=== PATIENT | male | born 1940 | race Caucasian/White ===

== ENCOUNTER 2019-04-23 09:00 | Inpatient (IN) | payer MEDICARE ==
[~2019-04-23] VITALS: Ht 188 cm; Wt 89.8 kg
[2019-04-23 10:23] VITALS: BP 115/68
[2019-04-23 10:56] LABS: ANION GAP 7 mmol/L (5-15); CHLORIDE 113 mmol/L (98-107); CHOLESTEROL, TOTAL 98 mg/dL (140-239); CREATININE 1.24 mg/dL (0.7-1.3); TRIGLYCERIDES 88 mg/dL (50-200); VLDL CHOLESTEROL 18 mg/dL (0-25)
[2019-04-23 11:00] LABS: FREE T4 (FREE THYROXINE) 1.56 ng/dL (0.76-1.46); HDL CHOL % 34 % (26-37); HDL CHOLESTEROL (DIRECT) 33 mg/dL (40-60); LDL CHOLESTEROL,CALCULATED 47 mg/dL (54-169); LDL/HDL RATIO 1.4 (0.5-3.0); TROPONIN I < 0.015 ng/mL (0.000-0.045)
[2019-04-23] MEDS ORDERED: AMLO5TAB10 PO (11:00)
[2019-04-23] MEDS: LOSARTAN 50MG TABLET PO SCH (11:00)
[2019-04-23] MEDS: AMLODIPINE 5 MG TABLET PO SCH (11:00)
[2019-04-23] MEDS ORDERED: APIX5TAB PO (11:01)
[2019-04-23] MEDS ORDERED: ATOR20TA37 PO (11:01)
[2019-04-23] MEDS ORDERED: GABA600T7 PO (11:04)
[2019-04-23] MEDS ORDERED: LOSA100T14 PO (11:17)
[2019-04-23] MEDS ORDERED: [UNRECOGNIZED DRUG - OTHER] (11:17)
[2019-04-23] MEDS ORDERED: [UNRECOGNIZED DRUG - OTHER] (11:17)
[2019-04-23] MEDS ORDERED: METO25TA91 PO (11:17)
[2019-04-23] MEDS: SOTALOL 80MG TABLET PO SCH ×2 (11:30→21:23)
[2019-04-23 13:17] VITALS: BP 108/73
[2019-04-23] MEDS ORDERED: ZOLPIDEM 5MG TABLET PO PRN (14:00)
[2019-04-23] MEDS: GABAPENTIN 300 MG CAPSULE PO SCH ×2 (16:00→21:24)
[2019-04-23 16:08] LABS: TROPONIN I < 0.015 ng/mL (0.000-0.045)
[2019-04-23 18:32] VITALS: BP 127/79
[2019-04-23] MEDS ORDERED: ATORVASTATIN 20 MG TABLET PO SCH (21:00)
[2019-04-23] MEDS: APIXABAN 5 MG TABLET PO SCH (21:23)
[2019-04-23 22:01] LABS: TROPONIN I < 0.015 ng/mL (0.000-0.045)
[2019-04-24 05:16] VITALS: BP 137/89
[2019-04-24] MEDS: LEVOTHYROXINE 50 MCG TABLET PO SCH (05:21)
[2019-04-24 07:23] VITALS: BP 134/88
[2019-04-24] MEDS: AMLODIPINE 5 MG TABLET PO SCH (09:10)
[2019-04-24] MEDS: APIXABAN 5 MG TABLET PO SCH ×2 (09:10→21:19)
[2019-04-24] MEDS: LOSARTAN 50MG TABLET PO SCH (09:11)
[2019-04-24] MEDS: GABAPENTIN 300 MG CAPSULE PO SCH ×3 (09:11→21:19)
[2019-04-24] MEDS: ALLOPURINOL 100 MG TABLET PO SCH (09:11)
[2019-04-24] MEDS: ATORVASTATIN 20 MG TABLET PO SCH (10:52)
[2019-04-24] MEDS: SOTALOL 80MG TABLET PO SCH ×2 (10:53→23:11)
[2019-04-24 12:27] VITALS: BP 115/83
[2019-04-24 19:02] VITALS: BP 123/77
[2019-04-25 02:00] VITALS: BP 119/82
[2019-04-25] MEDS: LEVOTHYROXINE 50 MCG TABLET PO SCH (05:46)
[2019-04-25] MEDS: GABAPENTIN 300 MG CAPSULE PO SCH ×3 (08:20→23:03)
[2019-04-25] MEDS: ATORVASTATIN 20 MG TABLET PO SCH (08:20)
[2019-04-25] MEDS: ALLOPURINOL 100 MG TABLET PO SCH (08:21)
[2019-04-25] MEDS: APIXABAN 5 MG TABLET PO SCH ×2 (08:21→23:04)
[2019-04-25] MEDS: AMLODIPINE 5 MG TABLET PO SCH (08:21)
[2019-04-25] MEDS: LOSARTAN 50MG TABLET PO SCH (08:21)
[2019-04-25 08:22] VITALS: BP 116/82
[2019-04-25] MEDS: SOTALOL 80MG TABLET PO SCH ×2 (10:33→23:04)
[2019-04-25] MEDS ORDERED: PROPOFOL 10 MG/ML, 20ML ONE (13:14)
[2019-04-25 14:20] VITALS: BP 129/84
[2019-04-25 18:59] VITALS: BP 137/81
[2019-04-26] MEDS: LEVOTHYROXINE 50 MCG TABLET PO SCH (06:26)
[2019-04-26 07:39] VITALS: BP 151/89
[2019-04-26] MEDS ORDERED: SOTA120T14 PO (07:57)
[2019-04-26] MEDS: APIXABAN 5 MG TABLET PO SCH (08:08)
[2019-04-26] MEDS: ATORVASTATIN 20 MG TABLET PO SCH (08:08)
[2019-04-26] MEDS: LOSARTAN 50MG TABLET PO SCH (08:09)
[2019-04-26] MEDS: GABAPENTIN 300 MG CAPSULE PO SCH (08:09)
[2019-04-26] MEDS: ALLOPURINOL 100 MG TABLET PO SCH (08:09)
[2019-04-26] MEDS: AMLODIPINE 5 MG TABLET PO SCH (08:09)
[2019-04-26] MEDS: SOTALOL 80MG TABLET PO SCH (08:09)
== END 2019-04-26 09:10 | disposition home or self-care (01) | DRG 309 ==
LOC: 5SO 09:25 → DCLOUNGE 04-26 09:08
PROVIDERS: ADMIT Internal Medicine Cardiovascular Disease; ATTEND Internal Medicine Cardiovascular Disease
PROC: 5A2204Z Restoration of Cardiac Rhythm, Single (ICD-10-PCS; principal; 2019-04-23)
DX: I48.0 Paroxysmal atrial fibrillation (principal); D68.69 Other thrombophilia; G25.81 Restless legs syndrome; G47.30 Sleep apnea, unspecified; N28.9 Disorder of kidney and ureter, unspecified; Z85.46 Personal history of malignant neoplasm of prostate; Z87.891 Personal history of nicotine dependence
CPT/HCPCS: 36415; 71046; 80048; 80061; 84439; 84443; 84484; 85014; 85018; 92960; 93005; G0103; G0378; J2704

== ENCOUNTER 2019-05-31 23:48 | Emergency (ER) | payer MEDICARE ==
[~2019-05-31] VITALS: Ht 188 cm; Wt 89.0 kg
[~2019-05-31 23:48] MED LIST: AMLO5TAB10 PO; APIX5TAB PO; ATOR20TA37 PO; GABA600T7 PO; LOSA100T14 PO; METO25TA91 PO; SOTA120T14 PO; [UNRECOGNIZED DRUG - OTHER]; [UNRECOGNIZED DRUG - OTHER]
[2019-06-01] MEDS ORDERED: LEVO50TA5 PO (00:44)
[2019-06-01] MEDS ORDERED: ALLO300T PO (00:44)
[2019-06-01] MEDS ORDERED: SOTA80TA PO (00:44)
--- NOTE | 2019-06-01 00:48 | NUR ---
T HERE FOR HTN AND HEADACHE. PT WAS 230/120. PTS HEADACHE HAS RESOLVED. PT DENIES CHEST PAIN OR VISION ISSUES. BP IMPROVED UPON ARRIVAL BUT STILL ELEVATED. PT IS FEELING BETTER. MED REC COMPLETE. MD AT BEDSIDE
[2019-06-01 01:16] LABS: BASOPHILS # (AUTO) 0.04 x10^3/uL (0-0.1); BASOPHILS % (AUTO) 1 % (0-1); EOSINOPHILS # (AUTO) 0.23 x10^3/uL (0-0.4); EOSINOPHILS % (AUTO) 5 % (1-7); LYMPHOCYTES # (AUTO) 0.78 x10^3/uL (1-3.4); LYMPHOCYTES % (AUTO) 17 % (22-44); MD NO; MEAN CORPUSCULAR HEMOGLOBIN 27.2 pg (27.5-34.5); MEAN CORPUSCULAR HGB CONC 31.8 g/dL (33.2-36.2); MEAN CORPUSCULAR VOLUME 85.7 fL (81-97); MEAN PLATELET VOLUME 7.7 fL (7.4-10.4); MONOCYTES # (AUTO) 0.49 x10^3/uL (0.2-0.8); MONOCYTES % (AUTO) 11 % (2-9); NEUTROPHILS # (AUTO) 2.94 x10^3/uL (1.8-6.8); NEUTROPHILS % (AUTO) 66 % (42-75); PLATELET COUNT 153 x10^3/uL (130-400); RED BLOOD COUNT 5.15 x10^6/uL (4.38-5.82); RED CELL DISTRIBUTION WIDTH 17.2 % (9.4-14.8)
[2019-06-01 01:28] LABS: ALBUMIN 3.7 g/dL (3.4-5.0); ANION GAP 7 mmol/L (5-15); CHLORIDE 112 mmol/L (98-107); CREATININE 0.97 mg/dL (0.7-1.3)
[2019-06-01 01:33] LABS: FREE T4 (FREE THYROXINE) 1.25 ng/dL (0.76-1.46); TROPONIN I < 0.015 ng/mL (0.000-0.045)
[2019-06-01 01:49] VITALS: BP 196/100
--- NOTE | 2019-06-01 01:51 | NUR ---
PT RESTING IN NAD. CALL LIGHT IN REACH.
--- NOTE | 2019-06-01 02:24 | NUR ---
Patient given discharge instructions and they have confirmed that they understand the instructions. Patient ambulatory with steady gait.
== END 2019-06-01 02:26 | disposition home or self-care (01) ==
LOC: ED 06-01 02:15
DX: I10 Essential (primary) hypertension (principal); I48.0 Paroxysmal atrial fibrillation; Z85.46 Personal history of malignant neoplasm of prostate
CPT/HCPCS: 36415; 80048; 82040; 83880; 84439; 84443; 84484; 85025; 93005; 99284

== ENCOUNTER 2019-06-18 09:46 | Observation (INO) | payer MEDICARE ==
[~2019-06-18] VITALS: Ht 188 cm; Wt 90.0 kg
[2019-06-19 09:30] VITALS: BP 117/75
== END 2019-06-19 11:06 | disposition home or self-care (01) ==
LOC: CACL 09:46 → ORIP 15:03 → 5SO 16:08 → DCLOUNGE 06-19 10:57
PROVIDERS: ADMIT Internal Medicine Cardiovascular Disease; ATTEND Internal Medicine Cardiovascular Disease
DX: I48.0 Paroxysmal atrial fibrillation (principal); I25.10 Atherosclerotic heart disease of native coronary artery without angina pectoris; I25.82 Chronic total occlusion of coronary artery; R06.02 Shortness of breath; I71.9 Aortic aneurysm of unspecified site, without rupture; I67.9 Cerebrovascular disease, unspecified; R53.83 Other fatigue; I10 Essential (primary) hypertension; E78.2 Mixed hyperlipidemia; Z88.0 Allergy status to penicillin; Z79.01 Long term (current) use of anticoagulants; Z79.899 Other long term (current) drug therapy
CPT/HCPCS: 36415; 80048; 85025; 93005; 93458; 99156; 99157; C1725; C1769; C1874; C1887; C1894; C9600; C9601; G0378; J0583; J1644; J2250; J3010; J3370; J7030; Q9967

== ENCOUNTER → 2019-09-12 | Outpatient (CLI) | payer MEDICARE ==
[~2019-09-12] MED LIST changes: +ACET325T26 PO; +ALLO300T PO; +ASPI81TA45 PO; +CLOP75TA PO; +LEVO50TA5 PO; +REGADENOSON 0.4 MG/5 ML SYRINGE ONE; +SOTA80TA PO; +ZOLP-413 PO
== END | disposition home or self-care (01) ==
LOC: CFH 12:10
PROVIDERS: ATTEND Physician Assistant Medical
DX: I25.10 Atherosclerotic heart disease of native coronary artery without angina pectoris (principal); I48.91 Unspecified atrial fibrillation; Z86.73 Personal history of transient ischemic attack (TIA), and cerebral infarction without residual deficits; Z85.9 Personal history of malignant neoplasm, unspecified; Z88.0 Allergy status to penicillin; Z82.49 Family history of ischemic heart disease and other diseases of the circulatory system
CPT/HCPCS: 78452; 93017; A9502; J2785

== ENCOUNTER → 2021-06-30 | Outpatient (CLI) | payer MEDICARE ==
[~2021-06-30] MED LIST changes: +AMLO-210 PO; -AMLO5TAB10 PO
== END | disposition home or self-care (01) ==
LOC: CFH 12:03
PROVIDERS: ATTEND Internal Medicine Cardiovascular Disease
DX: I25.10 Atherosclerotic heart disease of native coronary artery without angina pectoris (principal)
CPT/HCPCS: 78452; 93017; A9502; J2785